=== PATIENT | female | born 2000 | race Caucasian/White ===

== ENCOUNTER 2023-05-04 21:46 | Emergency (ER) | payer OTHER, SELFPAY ==
[2023-05-04 21:51] VITALS: BP 126/77; PULSE 77; RESP 16; TEMP 37.2; O2SAT 99; BMI 22.3
--- NOTE | 2023-05-04 22:51 | ED.SKABFB ---
HPI - Skin/Abscess/Foreign Bdy General Chief complaint: Skin/Abscess/Foreign Body Stated complaint: ? cyst on buttocks Time Seen by Provider: 05/04/23 22:12 Source: patient Mode of arrival: ambulatory Limitations: no limitations History of Present Illness HPI narrative: Patient is a 23-year-old female who presents emergency department for evaluation of a painful lump to her rectal area. Onset was approximately 3 days ago, has had purulent bloody drainage from this area. Is having increasing pain and swelling. She does report unprotected sexual intercourse 4 days ago vaginally and rectally, expresses concern for sexually transmitted infections. Denies prior known sexually transmitted infection. Denies fevers, chills, constipation, diarrhea, abdominal pain. Denies any vaginal discharge. Related Data Previous Rx's Medication Instructions Recorded doxycycline hyclate 100 mg capsule 100 mg PO BID #14 caps 05/05/23 metronidazole 500 mg tablet 500 mg PO BID #14 tabs 05/05/23 Allergies Allergy/AdvReac Type Severity Reaction Status Date / Time No Known Allergies Allergy Verified 05/04/23 21:51 Review of Systems Review of Systems: Constitutional :? Denies history of same, Denies any other sites involved, Denies history of MRSA, Denies swollen glands, Denies injury, Denies Fever, Denies Chills, + Sig Pain, Denies Systemic symptoms Cardiovascular : No Chest Pain, No SOB Respiratory : No Dyspnea Gastrointestinal : No abdominal pain. Rectal pain as per HPI Musculoskeletal : No Joint Swelling Skin : No skin laceration, No Foreign bodies, No spreading rash, Denies bites, Denies discharge, Neuro : No Weakness, No Numbness/tingling Psych : No SI/HI/thoughts of self injury Yes all other systems are reviewed and are negative [facility] Past Medical History Attestation statement: The following information was validated with the patient. Source: old records reviewed Social History Social History Advance Directives: No Advance Directives Information Provided: No Physical Exam Vital Signs: Vital Signs: Last Vital Signs Temp 99.0 F 05/04/23 21:51 Pulse 77 05/04/23 21:51 Resp 16 05/04/23 21:51 BP 126/77 05/04/23 21:51 Pulse Ox 99 05/04/23 21:51 O2 Del Method Room Air 05/04/23 21:51 BMI result Body Mass Index 22.3 Appearance: Alert.?Oriented to person, place and time. No acute distress.?Normal affect. Eyes: Pupils equal, round and reactive to light.? ENT: Pharynx normal.?? Neck: Normal inspection.? Neck supple.?? CVS: Heart sounds normal. Normal heart rate and rhythm.? Pulses normal.?? Respiratory: No respiratory distress.? Lung sounds clear to auscultation bilaterally?? Abdomen: Soft and non-tender. Normoactive bowel sounds. Rectal: Performed with die attacher, ED RN; Page. Perianal abscess without surrounding erythema, warmth. Skin: Skin warm and dry.? Normal skin color.? Extremities: No lower extremity edema. Neuro: Moves all extremities spontaneously. Sensation intact bilaterally. Ambulates with normal steady gait. Medications Administered Discontinued Medications Generic Name Dose Route Start Last Admin Trade Name Freq PRN Reason Stop Dose Admin Ceftriaxone Sodium 500 mg/ 0 mg 05/04/23 23:10 05/04/23 23:48 Lidocaine HCl 1 ml IM 05/04/23 23:11 1 kit ONCE ONE Administration Lidocaine HCl 4 ml 05/04/23 23:10 05/04/23 23:52 Lidocaine Hcl 2 % 20 Ml Vial SUBCUT 05/04/23 23:11 4 ml ONCE ONE Administration Medical Decision Making Medical Decision Making MDM Narrative: Patient is a 23-year-old female with no reported past medical history presenting to emergency department for evaluation of an abscess to the anal region. No sinus systemic toxicity, she is well-appearing. Physical examination is consistent with perianal abscess significant tenderness upon palpation. Abscess amenable to incision and drainage, please see procedure note; tolerated procedure well. No complications. No labs or imaging indicated at this time. Patient with concern for sexually transmitted infection given recent unprotected intercourse. Discussed with patient will obtain testing today be urine as well as rectal drainage culture. Discussed prophylactic treatment for sexually transmitted infections including ceftriaxone IM, and 1 week course of doxycycline in addition to metronidazole both of which are appropriate for management of perianal abscess as well. Reviewed symptomatic treatment, worrisome signs and symptoms that would warrant re-evaluation in the emergency department, advised outpatient follow-up with primary care provider/[facility] for additional STI screening. Patient verbalizes understanding, is agreeable to STI prophylaxis Differential Diagnosis Differential Diagnoses: The differential diagnosis associated with the presentation includes (Perianal abscess, perirectal abscess, thrombosed hemorrhoid, sexually transmitted infection) Independent Historian Clinical information obtained from an independent historian. History obtained from or confirmed by: Parent (Patient's mother is at bedside in confirms history as told by patient) Tests considered The following testing was considered but not selected: I considered serum labs including CBC for leukocytosis, however she is well-appearing, afebrile without tachycardia, appears to be simple abscess, labs deferred Prescription Management I considered prescription management with: Antibiotic (As per MDM narrative) Procedures Abscess I/D Site: other (perianal) Side (if applicable): left Local Anesthetic: lidocaine 2% Amount of anesthesia used (mL): 3 Technique: incised with blade Sent for culture/gram staining?: Yes Irrigation: Yes Packing used?: none Discharge Plan Discharge Clinical Impression: Abscess, perianal Patient Disposition: Home, Self-Care Instructions: Sitz Bath (DC), Rectal Abscess (ED) Additional Instructions: The abscess was drained today, this may continue to drain over the next few days. Follow instructions for Sitz bath 2-3 times daily. I have sent a prescription for antibiotics your pharmacy; Doxycycline 100 mg twice daily for 7 days, metronidazole 500 mg twice daily for 7 days You received ceftriaxone IM while in the emergency department If any of your testing for sexually transmitted infection today is positive you will receive a phone call from the hospital. Please contact your primary care provider and arrange for a follow-up visit within 1-3 days. You may return back to emergency department any new or worsening symptoms or concerns. Prescriptions: New doxycycline hyclate 100 mg capsule 100 mg PO BID Qty: 14 0RF metronidazole 500 mg tablet 500 mg PO BID Qty: 14 0RF Referrals: Jackie Reagan MD [Primary Care Provider] -
[2023-05-05 10:54] LABS: CT PCR NOT DETECTED (Not Detect.); NG PCR NOT DETECTED (Not Detect.)
== END 2023-05-05 01:00 | disposition home or self-care (01) ==
PROVIDERS: Nurse Practitioner Family; Emergency Provider Emergency Medicine Emergency Medical Services; PCP Internal Medicine
DX: K61.0 Anal abscess (principal)
CPT/HCPCS: 0353U; 46050; 81025; 87491; 87591; 96372; 99282; 99284; J0696